=== PATIENT | female | born 1955 | race Asian ===

== ENCOUNTER 2020-03-14 06:04 | Day surgery (SDC) | payer BC ==
[2020-03-13 16:20] VITALS: BMI 25.8
[2020-03-14] MEDS ORDERED: LIDOCAINE HCL 1%, 10 MG/ML (20ML VIAL) ONE (07:19)
[2020-03-14] MEDS ORDERED: LIDOCAINE HCL 1%, 10 MG/ML (20ML VIAL) ID ONE ×3 (09:27→10:48)
[2020-03-14] MEDS ORDERED: LIDOCAINE HCL/PF 2% SDV 5ML VIAL ONE (11:26)
[2020-03-14] MEDS ORDERED: MIDAZOLAM HCL 2 MG/2 ML SINGLE DOSE VIAL ONE (11:26)
[2020-03-14] MEDS ORDERED: PROPOFOL 20 ML ONE (11:26)
[2020-03-14] MEDS ORDERED: ceFAZolin SODIUM 1 GM VIAL ONE (11:29)
[2020-03-14] MEDS ORDERED: ceFAZolin SODIUM 1 GM VIAL IVPB ONE (11:30)
[2020-03-14] MEDS ORDERED: DEXAMETHASONE SOD PHOSPHATE 4 MG/1 ML VIAL ONE (11:34)
[2020-03-14] MEDS ORDERED: ONDANSETRON 4 MG/2 ML VIAL IVPUSH PRN (12:26)
[2020-03-14] MEDS ORDERED: oxyCODONE HCL 5 MG TABLET PO PRN (12:26)
[2020-03-14] MEDS ORDERED: ACETAMINOPHEN 325 MG TABLET (FP) PO PRN (12:26)
[2020-03-14] MEDS ORDERED: LACTATED RINGERS SOLUTION 1,000 ML IV SCH (12:30)
[2020-03-14 17:10] VITALS: BP 115/65; PULSE 64; TEMP 98
== END 2020-03-14 16:45 | disposition home or self-care (01) ==
LOC: JASU-SURG 06:04
PROVIDERS: ATTEND Surgery
PROC: 0HBT0ZX Excision of Right Breast, Open Approach, Diagnostic (ICD-10-PCS; principal; 2020-03-14 10:30)
DX: D24.1 Benign neoplasm of right breast (principal)
CPT/HCPCS: 19281; 76098-TC-FY; 88307-TC; 94760